=== PATIENT | female | born 2000 | race Caucasian/White ===

== ENCOUNTER 2023-12-21 11:11 | Outpatient (AMB) | payer OTHER, SELFPAY ==
[2023-12-21 11:32] VITALS: BP 126/80; PULSE 83; O2SAT 100; BMI 49.9
--- NOTE | 2023-12-21 11:32 | AM.OFFWIN_ITS ---
Intake Vital Signs 3 12/21/23 11:32 Height 5 ft 4 in Weight 290 lb 8 oz BMI 49.9 BP 126/80 Blood Pressure Location Lt brachial Position Sitting Pulse 83 Pulse Source Pulse Oximeter Pulse Oximetry (%) 100 Oxygen Delivery Method Room Air Intake Visit Reasons: L Foot Pain Intake Note: Patient is here today for left foot pain with some swelling started last night with no knowledge of injury. Patient Tobacco Use Status: Never used Tobacco Chair Maker Required: No Fieldwork Coordinator: Not Required per policy Accompanied by: Self / Same As Patient Allergies latex Allergy (Intermediate, Verified 12/21/23 12:06) contact dermatitis Medication List - Last Reconciled 12/21/23 by Kinza C[place]ton, [facility]- sertraline 50 mg PO DAILY Do you need a note to return to daycare/school/sports/work: No HPI HPI Comments 2 History of Present Illness0 Details Here today w/ swelling and pain of L foot started last night has known plantar fasciitis in R foot pain is located on top of foot no overt injury denies any new exercises or activity this has never happened before today pain is worse today; swelling just started today PFSH Social History Patient Tobacco Use Status: Never used Tobacco Review of Systems Const All systems reviewed & are unremarkable except as noted in HPI and below Physical Exam Vital Signs: Last Vital Signs Pulse 83 12/21/23 11:32 BP 126/80 12/21/23 11:32 Pulse Ox 100 12/21/23 11:32 Oxygen Delivery Method Room Air 12/21/23 11:32 BMI result Body Mass Index 49.9 Extrem General: Yes full ROM, Yes capillary refill normal, Yes no clubbing, cyanosis or edema, Yes no pedal edema, Yes no calf tenderness and Yes Limp noted Right lower extremity: foot Details: tenderness Location: of the dorsal foot Location: proximally and of the mid foot and toes with normal ROM Ankle/foot/toe images: 2 1. Pain with palpation Assessment & Plan Assessment & Plan (1) Left foot pain: Code(s): M79.672 - Pain in left foot Plan: . Plan Unknown cause for the pain in her foot today. I have ordered an x-ray and should get done today. I have offered crutches however she is worried about out of pocket cost. Therefore I have provided her with a paper prescription that she can take to her durable medical supply company to get [employer] quote. I have advised her to do weight-bearing as tolerated as I do not want her completely off of that left foot. She can use the crutches to assist her gait. She can use [id number] analgesics for the pain. I have wrapped the left and ankle with an Robinson wrap. Education on use provided. She reports that she is uses past and will continue to do so. I will call her with the results of the x-ray. The differential treatment plans include referral to Orthopedics referral if there is a fracture, referral to Physical therapy for evaluation and treatment, or referral to Orthopedics for a further workup to determine the cause for pain Total time spent caring for the patient today was 30 minutes. This includes time spent before the visit reviewing the chart, time spent during the visit, and time spent after the visit on documentation This note is constructed using voice recognition software. While every effort has been made to ensure accuracy in air compressor mechanic, still errors may have been included Sometimes, these errors may affect the content or meaning of the given sentence . Orders: Orders 2 XR foot LT min 3V Today M79.672 - Pain in left foot Medications: New 2 crutches (pair of crutches) As directed 1 ea 0RF M79.672 - Pain in left foot Coding Level of Care Code Est Pt Level 4 (80374) Diagnoses Left foot pain M79.672
== END 2023-12-21 12:19 | disposition home or self-care (01) ==
PROVIDERS: Visit Provider Nurse Practitioner Family
DX: M79.672 Pain in left foot (principal)
CPT/HCPCS: 99214

== ENCOUNTER 2023-12-21 12:51 | Outpatient (REF) | payer OTHER, SELFPAY ==
--- NOTE | ~2023-12-21 | XR_ITS ---
EXAMINATION: XR FOOT, LEFT CLINICAL INFORMATION: Left foot pain COMPARISON: None available. TECHNIQUE: AP, lateral, and oblique views of the left foot. FINDINGS: The bones and soft tissues are normal. No fracture. Alignment is anatomic. Joint spaces are maintained. XR/XR foot LT min 3V IMPRESSION: No acute bony pathology.
== END 2023-12-21 12:52 | disposition home or self-care (01) ==
LOC: HO.HMGCX 12:51
PROVIDERS: PCP Internal Medicine; Visit Provider Nurse Practitioner Family
DX: M79.672 Pain in left foot (principal)
CPT/HCPCS: 73630